=== PATIENT | male | born 1960 | race Two or more races ===

== ENCOUNTER 2022-05-25 18:52 | Emergency (ER) | payer MEDICAID, OTHER ==
[~2022-05-25] VITALS: Ht 180.3 cm; Wt 86.0 kg
[2022-05-25] MEDS ORDERED: IBUPROFEN 400MG TABLET PO ONE (20:15)
[2022-05-25] MEDS ORDERED: ACETAMINOPHEN 325MG TABLET PO ONE (20:15)
[2022-05-26] MEDS: IBUPROFEN 400MG TABLET PO NR ×2 (01:24→04:46)
[2022-05-26] MEDS ORDERED: ACETAMINOPHEN 325MG TABLET PO NR (01:30)
[2022-05-26] MEDS ORDERED: IBUP-2028 MT (02:00)
[2022-05-26] MEDS ORDERED: ACET-2708 MT (02:00)
[2022-05-26] MEDS ORDERED: MORPHINE SULFATE 4 MG/ML CPJ (NOT FOR IM USE) IV ONE (02:15)
[2022-05-26 04:47] VITALS: BP 135/77
== END 2022-05-26 03:00 | disposition home or self-care (01) ==
LOC: ER 18:52
DX: S42.391A Other fracture of shaft of right humerus, initial encounter for closed fracture (principal); S42.291A Other displaced fracture of upper end of right humerus, initial encounter for closed fracture; S02.2XXA Fracture of nasal bones, initial encounter for closed fracture; I10 Essential (primary) hypertension; F31.9 Bipolar disorder, unspecified; W17.89XA Other fall from one level to another, initial encounter; Y93.89 Activity, other specified; Y92.9 Unspecified place or not applicable
CPT/HCPCS: 70450; 70486; 73030; 73080; 73110; 96374; 99284; J2270; L3670

== ENCOUNTER 2025-07-03 13:16 | Emergency (ER) | payer MEDICARE, OTHER ==
[~2025-07-03] VITALS: Ht 180.3 cm; Wt 79.0 kg
[~2025-07-03 13:16] MED LIST: ACET-2708 MT; IBUP-2028 MT
[2025-07-03 13:17] VITALS: O2SAT 98
[2025-07-03] MEDS: METOCLOPRAMIDE HCL 10MG/2ML VIAL IV ONE ×2 (13:47→18:28)
[2025-07-03 14:06] LABS: BASOPHILS % 0.8 % (0.0-2.0); EOSINOPHILS % 1.6 % (0.0-5.0); HEMATOCRIT. 41.8 % (42.0-52.0); HEMOGLOBIN. 13.5 g/dL (14.0-18.0); LYMPHOCYTES % 15.5 % (20.0-50.0); MEAN PLATELET VOLUME 7.5 fl (7.4-10.4); MONOCYTES % 7.6 % (2.0-8.0); NEUTROPHILS % 74.5 % (40.0-76.0); PLATELET 348 x1000/uL (130-400); RED BLOOD CELL COUNT 4.85 mill/uL (4.7-6.1); RED CELL DISTRIBUTION WIDTH 15.1 % (11.6-14.6)
[2025-07-03 14:13] LABS: CREATININE 1.4 mg/dL (0.6-1.3); TROPONIN I HIGH SENSITIVITY 5 ng/L (3.0-53); UREA NITROGEN BLOOD 19 mg/dL (9-23)
[2025-07-03 14:14] LABS: ASPARTATE AMINOTRANSFERASE 18 IU/L (<34)
[2025-07-03 14:15] LABS: BILIRUBIN TOTAL 0.3 mg/dL (0.1-1.0); PROTEIN TOTAL 7.2 g/dL (6.0-8.3)
[2025-07-03] MEDS: ACETAMINOPHEN 500MG TABLET PO ONE (15:08)
[2025-07-03] MEDS: MORPHINE SULFATE 4 MG/ML INJ (FOR IV/IM USE) IV ONE (15:08)
[2025-07-03] MEDS: KETOROLAC 15MG/ML VIAL IV ONE (18:28)
[2025-07-03 18:30] VITALS: BP 155/95; PULSE 87; RESP 20; TEMP 36.8; O2SAT 98
[2025-07-03] MEDS ORDERED: IBUP-2028 MT (18:47)
[2025-07-03] MEDS ORDERED: HYDR-4001 MT (18:47)
[2025-07-03] MEDS ORDERED: IOHEXOL-350 100 ML BOTTLE ONE (23:24)
== END 2025-07-03 18:57 | disposition home or self-care (01) ==
LOC: ER 13:16
DX: R51.9 Headache, unspecified (principal); M54.2 Cervicalgia; G31.9 Degenerative disease of nervous system, unspecified; I10 Essential (primary) hypertension; Z79.82 Long term (current) use of aspirin
CPT/HCPCS: 99285; 70496; 96374; 96375; 80053; 85025; 84484; 36415; 70498; 93005; 70450; J1885; Q9967; J2765; J2270